=== PATIENT | male | born 2000 | race Caucasian/White ===

== ENCOUNTER 2020-04-27 14:08 | Emergency (ER) | payer MEDICAID, SELFPAY ==
[2020-04-27 14:09] VITALS: BP 130/85; PULSE 77; RESP 16; TEMP 36.1; O2SAT 95; BMI 41.8
--- NOTE | 2020-04-27 14:23 | ED.VIS.GEN ---
History of Present Illness Chief Complaint: Dental Informant: Patient Onset: Days Context: Gradual Onset Timing: Continuous Current Severity: Moderate Maximum Severity: Moderate Narrative: The patient is a 19-year-old male who is otherwise healthy the presents to the emergency department dental pain. Patient states that he was told a few years ago, that his dental wisdom teeth were impacted. He states over the past few days, it is starting to come out and has been more painful. He states his irritation along his lower gumline. He denies fevers or chills. He denies trouble speaking or swallowing. Prior similar symptoms: No Recent Illness/Hospitalization: No Past Medical History - Allergies and Home Meds Allergies/Adverse Reactions: Allergies No Known Allergies Allergy (Verified 04/27/20 14:09) Primary Care Physician: NOT,DEFINED [Primary Care Provider] - Prior records reviewed: Yes Past Medical History: None Surgical History: no surgical history Smoking Status: Current every day smoker Review of Systems General: Denies: Chills, Fever, Sweats Eyes: Denies: Visual changes - bilaterally, Diplopia ENT: Denies: Rhinorrhea, Sore throat Cardiovascular: Denies: Chest pain, Palpitations Respiratory: Denies: Dyspnea, Cough, Dyspnea on exertion Gastrointestinal: Denies: Abdominal pain, Nausea, Vomiting, Diarrhea, Melena, Hematochezia Genitourinary: Denies: Dysuria, Hematuria, Frequency Musculoskeletal: Denies: Back pain, Extremity Pain Skin: Denies: Rash, Wounds Neurological: Denies: Headache, Weakness, Numbness Physical Exam Vital Signs/Narrative: Vital Signs Temp Pulse Resp BP Pulse Ox 04/27/20 14:09 97 F L 77 16 130/85 H 95 Inital Vital Signs reviewed: Yes General: Well nourished, Well developed, No Acute Distress Head: Normocephalic, Atraumatic Eyes: Perrl, EOMI ENT: Moist mucous membranes, No rhinorrhea, - - Oral mucosa is pink and moist. Submental space is soft. He does have impacted wisdom tooth #32. There is no evidence of González angina. Neck: Supple, Nontender Cardiovascular: Regular rate, Regular rhythm, No murmurs Respiratory: No distress, CTA bilaterally, Chest nontender Abdomen: Soft, Nontender, Nondistended, Normal bowel sounds Back: Nontender, Normal Inspection Extremities: Nontender, No edema Skin: Normal color, No rash Neurological: Alert, Oriented x3, Cranial nerves II-XII grossly intact, Normal Strength, Normal Sensation Psychological: Normal affect, Normal Mood Diagnostic/Tx/Re-eval - Medical Decision Making Patient presents with pain from impacted wisdom tooth. There is mild erythema of the gumline but no focal abscess. The submental space is soft. There is no trismus or stridor. There is no evidence of González angina. Patient will be placed on anti-inflammatories and antibiotics along with given outpatient dental resources as he is likely going to need wisdom tooth extraction. Impression 1. Impacted wisdom tooth ED Disposition - Plan for ED Patient: Instructions: ED Tooth Pain Prescriptions: Amox/Clavulanate Tablet [Augmentin Tablet] 875 mg PO Q12H #20 tab Prescription Printed Naproxen [Naprosyn] 500 mg PO BID PRN #20 tab Prescription Printed Referrals: NOT,DEFINED [Primary Care Provider] -
[2020-04-27] MEDS: HYDROcodone Bitartrate/Apap 5/325 Tablet PO (14:47)
== END 2020-04-27 14:51 | disposition home or self-care (01) ==
LOC: ED 14:41
PROVIDERS: Emergency Provider Emergency Medicine
DX: K01.1 Impacted teeth (principal); F17.200 Nicotine dependence, unspecified, uncomplicated
CPT/HCPCS: 99283